=== PATIENT | female | born 1995 | race Caucasian/White ===

== ENCOUNTER → 2018-07-11 14:35 | Oncology outpatient (ONC) | payer OTHER, SELFPAY ==
[2018-07-11 15:26] VITALS: BP 130/86; PULSE 74; RESP 18; TEMP 36.2; O2SAT 100
--- NOTE | 2018-07-11 15:54 | ONC.PN ---
PN -Subjective Interval history: Diagnosis: Neutrophilia History of present illness: The patient is a 22-year-old woman who is referred for further evaluation of an abnormal CBC. She had been complaining of some intermittent hot flashes. They a began she thinks around February. In April, she began to pay more attention to them or thinks they may become more noticeable. She reports episodes of feeling quite flushed and sweaty. She reports that she did have fevers during that time. They then would be followed by episodes of rigors. She otherwise was not feeling ill. She did have some abdominal pain that was found to be related to an ovarian cyst however. Around that time, she had a CBC checked. On May 28, her white count was 9.7 with a hemoglobin of 14.2 hematocrit was 42.3 with a normal MCV. Platelets were 329,000. Differential showed normal cell fractions except for an absolute neutrophil count was mildly elevated at 7.2. Today, she is without complaint. She has not had any recent infections but did have a course of antibiotics for bacterial vaginosis. She denies any new aches or pains. She has not noted any adenopathy. Appetite has been good. She has been trying to lose weight and has lost between 15 and 20 lb over the last 2-3 months. She does exercise regularly. Her past medical history is notable for a ovarian cyst. She has a history of PTSD as well as ADHD anxiety and depression. She has had prior surgery with tympanostomy tubes. She has had surgery for wisdom teeth. She has had an IUD placed. Her current medications include trazodone and Adderall. She takes a multivitamin. She has a Mirena IUD. She denies any drug allergies. Family history is notable for an uncle who had leukemia. Another uncle had 3 different types of cancer although she is not sure of the details. There is no family history of blood dyscrasias. Social history: She is in the . She works in [employer]. She does not smoke or use alcohol. - Additional ROS Additional ROS: As mentioned in the HPI. She has had chills and hot flashes. She has not noticed any adenopathy. Her weight has been down but it has been intentional. Her appetite has been good. No shortness of breath or cough. No chest pain or palpitations. No nausea or vomiting. Bowels have been moving normally. She did have some abdominal pain to an ovarian cyst. She denies any unusual bleeding or bruising. All other review of systems are negative. Home Medications and Allergies Home Medications Medication Instructions Recorded Confirmed Type trazodone 100 mg PO HS #0 08/26/16 07/11/18 History trazodone 100 mg PO HS #0 10/21/16 07/11/18 History dextroamphetamine-amphetamine 30 mg PO DAILY 07/11/18 07/11/18 History [Adderall] levonorgestrel [Mirena] 07/11/18 History Allergies Allergy/AdvReac Type Severity Reaction Status Date / Time No Known Allergies Allergy Uncoded 06/07/17 12:45 Exam Vital signs: Vital Signs Temp Pulse Resp BP Pulse Ox 07/11/18 15:26 97.2 F L 74 18 130/86 100 Intake and Output 07/10/18 07/11/18 07/11/18 23:59 07:59 15:59 Other: Weight 83.1 kg Patient Weight 07/11/18 23:59 Weight 83.1 kg - Constitutional positive no acute distress, positive average body habitus - Routine HEENT Exam Head: Present: normocephalic, atraumatic Eye: Present: EOMI, PERRL. Absent: conjunctival icterus, scleral injection ENT: Present: mucous membranes moist, oropharynx clear, dentition normal - Routine Neck Exam Present: supple. Absent: lymphadenopathy, thyromegaly - Routine Chest/Breast/Axilla Exam Axillae: Absent: lymphadenopathy - Routine Respiratory Exam Present: Clear to auscultation bilaterally. Absent: rales, wheezes - Routine Cardiovascular Exam Present: RRR, S1, S2. Absent: murmur - Routine Abdominal Exam Present: soft, normoactive bowel sounds. Absent: tenderness, organomegaly, mass - Routine Extremities Exam Absent: cyanosis, clubbing, edema - Routine Back/Spine Exam Back/Spine: Absent: vertebral tenderness - Routine Skin Exam Present: intact. Absent: petechiae, rash - Routine Neurological Exam Present: alert, oriented X3 - Routine Psychiatric Exam Present: normal affect, normal thought process Assessment and Plan (1) Elevated WBC count Current visit: Yes Status: Acute A 22-year-old woman with a mild neutrophilia on a CBC. It is possible that this may have been related to infection such as bacterial vaginosis. It may have been related to her ovarian cyst or other inflammatory process. It is unlikely that any of her medications were the cause. She clinically appears well. I think it is reasonable to repeat a CBC today. I do not think that any further evaluation is likely to be necessary as long as her counts are not significantly worsening. We will call her when the results are testing available and arrange for further follow-up after that if necessary.
--- NOTE | 2018-07-11 15:55 | ONC.SCHED ---
Patient will call to schedule. She will have her labs drawn and then she was told Dr. Starkey would let us know if she needs to come back.
--- NOTE | 2018-07-11 16:03 | P.CONONC_ITS ---
History of Present Illness - Data of Consult Consult date: 07/11/18 - Consult Narrative Narrative: Mihir Rice is a 22 year old female PN -Subjective Interval history: Diagnosis: Neutrophilia History of present illness: The patient is a 22-year-old woman who is referred for further evaluation of an abnormal CBC. She had been complaining of some intermittent hot flashes. They a began she thinks around February. In April, she began to pay more attention to them or thinks they may become more noticeable. She reports episodes of feeling quite flushed and sweaty. She reports that she did have fevers during that time. They then would be followed by episodes of rigors. She otherwise was not feeling ill. She did have some abdominal pain that was found to be related to an ovarian cyst however. Around that time, she had a CBC checked. On May 28, her white count was 9.7 with a hemoglobin of 14.2 hematocrit was 42.3 with a normal MCV. Platelets were 329,000. Differential showed normal cell fractions except for an absolute neutrophil count was mildly elevated at 7.2. Today, she is without complaint. She has not had any recent infections but did have a course of antibiotics for bacterial vaginosis. She denies any new aches or pains. She has not noted any adenopathy. Appetite has been good. She has been trying to lose weight and has lost between 15 and 20 lb over the last 2-3 months. She does exercise regularly. Her past medical history is notable for a ovarian cyst. She has a history of PTSD as well as ADHD anxiety and depression. She has had prior surgery with tympanostomy tubes. She has had surgery for wisdom teeth. She has had an IUD placed. Her current medications include trazodone and Adderall. She takes a multivitamin. She has a Mirena IUD. She denies any drug allergies. Family history is notable for an uncle who had leukemia. Another uncle had 3 different types of cancer although she is not sure of the details. There is no family history of blood dyscrasias. Social history: She is in the . She works in [employer]. She does not smoke or use alcohol. - Additional ROS Additional ROS: As mentioned in the HPI. She has had chills and hot flashes. She has not noticed any adenopathy. Her weight has been down but it has been intentional. Her appetite has been good. No shortness of breath or cough. No chest pain or palpitations. No nausea or vomiting. Bowels have been moving normally. She did have some abdominal pain to an ovarian cyst. She denies any unusual bleeding or bruising. All other review of systems are negative. Home Medications and Allergies Home Medications Medication Instructions Recorded Confirmed Type trazodone 100 mg PO HS #0 08/26/16 07/11/18 History trazodone 100 mg PO HS #0 10/21/16 07/11/18 History dextroamphetamine-amphetamine 30 mg PO DAILY 07/11/18 07/11/18 History [Adderall] levonorgestrel [Mirena] 07/11/18 History Allergies Allergy/AdvReac Type Severity Reaction Status Date / Time No Known Allergies Allergy Uncoded 06/07/17 12:45 Exam Vital signs: Vital Signs Temp Pulse Resp BP Pulse Ox 07/11/18 15:26 97.2 F L 74 18 130/86 100 Intake and Output 07/10/18 07/11/18 07/11/18 23:59 07:59 15:59 Other: Weight 83.1 kg Patient Weight 07/11/18 23:59 Weight 83.1 kg - Constitutional positive no acute distress, positive average body habitus - Routine HEENT Exam Head: Present: normocephalic, atraumatic Eye: Present: EOMI, PERRL. Absent: conjunctival icterus, scleral injection ENT: Present: mucous membranes moist, oropharynx clear, dentition normal - Routine Neck Exam Present: supple. Absent: lymphadenopathy, thyromegaly - Routine Chest/Breast/Axilla Exam Axillae: Absent: lymphadenopathy - Routine Respiratory Exam Present: Clear to auscultation bilaterally. Absent: rales, wheezes - Routine Cardiovascular Exam Present: RRR, S1, S2. Absent: murmur - Routine Abdominal Exam Present: soft, normoactive bowel sounds. Absent: tenderness, organomegaly, mass - Routine Extremities Exam Absent: cyanosis, clubbing, edema - Routine Back/Spine Exam Back/Spine: Absent: vertebral tenderness - Routine Skin Exam Present: intact. Absent: petechiae, rash - Routine Neurological Exam Present: alert, oriented X3 - Routine Psychiatric Exam Present: normal affect, normal thought process Assessment and Plan (1) Elevated WBC count Current visit: Yes Status: Acute A 22-year-old woman with a mild neutrophilia on a CBC. It is possible that this may have been related to infection such as bacterial vaginosis. It may have been related to her ovarian cyst or other inflammatory process. It is unlikely that any of her medications were the cause. She clinically appears well. I think it is reasonable to repeat a CBC today. I do not think that any further evaluation is likely to be necessary as long as her counts are not significantly worsening. We will call her when the results are testing available and arrange for further follow-up after that if necessary. CC: Isaac Starkey MD Home Medications and Allergies Home Medications Medication Instructions Recorded Confirmed Type trazodone 100 mg PO HS #0 08/26/16 07/11/18 History trazodone 100 mg PO HS #0 10/21/16 07/11/18 History dextroamphetamine-amphetamine 30 mg PO DAILY 07/11/18 07/11/18 History [Adderall] levonorgestrel [Mirena] 07/11/18 History Allergies Allergy/AdvReac Type Severity Reaction Status Date / Time No Known Allergies Allergy Uncoded 06/07/17 12:45 Exam Vital signs: Vital Signs Temp Pulse Resp BP Pulse Ox 07/11/18 15:26 97.2 F L 74 18 130/86 100 Intake and Output 07/11/18 07/11/18 07/11/18 07:59 15:59 23:59 Other: Weight 83.1 kg Patient Weight 07/11/18 23:59 Weight 83.1 kg Assessment and Plan (1) Elevated WBC count Current visit: Yes Status: Acute A 22-year-old woman with a mild neutrophilia on a CBC. It is possible that this may have been related to infection such as bacterial vaginosis. It may have been related to her ovarian cyst or other inflammatory process. It is unlikely that any of her medications were the cause. She clinically appears well. I t hink it is reasonable to repeat a CBC today. I do not think that any further evaluation is likely to be necessary as long as her counts are not significantly worsening. We will call her when the results are testing available and arrange for further follow-up after that if necessary.
[2018-07-11 16:29] LABS: Add Manual Diff / Slide Review NO; Basophils Absolute Auto 0 /uL (0-100); Basophils Percent Auto 0.4 % (0-2); Eosinophils Absolute Auto 100 /uL (0-450); Eosinophils Percent Auto 0.9 % (2-4); Hematocrit 43.1 % (36-46); Hemoglobin 14.4 g/dL (12.0-16.0); Lymphocytes Absolute Auto 1900 /uL (1100-4500); Lymphocytes Percent Auto 24.4 % (25-40); Mean Corpuscular HGB Conc 33.5 % (30-36); Mean Corpuscular Volume 89.7 fL (80-100); Monocytes Absolute Auto 900 /uL (0-900); Monocytes Percent Auto 11.1 % (3-14); Neutrophils Absolute Auto 4800 /uL (1500-7000); Neutrophils Percent Auto 63.2 % (50-75); Platelet Count 287 X10^3/uL (150-400); Red Blood Cell Count 4.81 X10^6/uL (4.0-5.2); Red Cell Distribution Width 13.3 % (11.6-14.8); White Blood Cell Count 7.6 X10^3/uL (4.5-11.0)
--- NOTE | 2018-07-18 09:24 | PC.NURSE ---
Addendum entered by Shereen Dumont R.N. 07/18/18 16:52: Per Dr. Starkey no further testing necessary, lab results were normal and show no need for follow up. This was communicated to patient per telephone. Original Note: Patient called wanting to know results of last lab draw. Nurse will send note to Dr. Starkey if he wants to call her back on any of it.
== END ==
DX: D72.829 Elevated white blood cell count, unspecified (principal)
CPT/HCPCS: 36415; 85025; 99204; 99214